=== PATIENT | male | born 1995 | race Caucasian/White ===

== ENCOUNTER 2016-10-30 07:22 | Emergency (ER) | payer MEDICAID, OTHER ==
[~2016-10-30] VITALS: Ht 182.9 cm; Wt 101.2 kg
[~2016-10-30 07:22] MED LIST: ALBUTEROL0.09 MG/A1
[2016-10-30 07:36] VITALS: BP 139/86
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
--- NOTE | 2016-10-30 08:10 | NUR ---
PT TAKEN TO [facility] VIA W/C ACCOMPANIED BY [facility] [facility] [facility].
[2016-10-30] MEDS ORDERED: KETOROLAC 60 MG/2 ML VIAL IM ONE (08:15)
--- NOTE | 2016-10-30 08:24 | NUR ---
PT BACK FROM [facility]
[2016-10-30 09:23] VITALS: BP 127/84
== END 2016-10-30 09:23 | disposition home or self-care (01) ==
LOC: MED 07:22
DX: S20.211A Contusion of right front wall of thorax, initial encounter (principal); J45.909 Unspecified asthma, uncomplicated; W50.1XXA Accidental kick by another person, initial encounter; Y93.89 Activity, other specified; Y92.89 Other specified places as the place of occurrence of the external cause; Y99.8 Other external cause status
CPT/HCPCS: 71100; 81001; 96372; 99285; J1885

== ENCOUNTER 2019-08-06 06:12 | Emergency (ER) | payer MEDICAID ==
[~2019-08-06] VITALS: Ht 175.3 cm; Wt 104.8 kg
[~2019-08-06 06:12] MED LIST changes: +ALBU0.0939; -ALBUTEROL0.09 MG/A1
[2019-08-06 06:21] VITALS: BP 136/70
--- NOTE | 2019-08-06 06:29 | NUR ---
PT AMBULATED TO BED 2. STREP THROAT SWAP COLLECTED.
--- NOTE | 2019-08-06 06:35 | NUR ---
24/M CC SORE THROAT L SIDE SINCE THURSDAY 08/03. STATES DIFFICULTY IN BREATHING UPON AWAKENING. PAIN UNBEARABLE 03/02 UNABLE TO EAT. AOX4 ABLE TO VERBALIZE NEEDS. EVEN UNLABORED BREATHING. AFEBRILE. BED IN LOWEST POSITION. HX ASTHMA. TAKES IBUPROFEN 400MG FOR PAIN. WILL CONTINUE TO MONITOR.
--- NOTE | 2019-08-06 07:00 | NUR ---
ENDORSED CARE TO INCOMING SHIFT RN FERNANDA FOR CONTINUITY OF CARE.
--- NOTE | 2019-08-06 07:01 | NUR ---
RECEIVED REPORT FROM LESLIE BYERS. TRANSFER OF CARE AT THIS TIME
--- NOTE | 2019-08-06 07:06 | NUR ---
STREP SWAB TAKEN TO LAB.
--- NOTE | 2019-08-06 07:10 | NUR ---
DR TURNER AT BEDSIDE EXAMINING PT
[2019-08-06] MEDS ORDERED: PENICILLIN G BENZATHINE C-R 1.2 MU/2 ML SYR IM ONE (07:15)
[2019-08-06 08:42] VITALS: BP 129/71
--- NOTE | 2019-08-06 08:43 | NUR ---
Patient discharged with v/s stable. Written and verbal after care instructions given and explained. Patient alert, oriented and verbalized understanding of instructions. Ambulatory with steady gait. All questions addressed prior to discharge. ID band removed. Patient advised to follow up with PMD. Rx of MOTRIN, LIDOCAINE, AND PENICILLIN given. Patient educated on indication of medication including possible reaction and side effects. Opportunity to ask questions provided and answered.
== END 2019-08-06 08:43 | disposition home or self-care (01) ==
LOC: MED 06:12
DX: J02.0 Streptococcal pharyngitis (principal); J45.909 Unspecified asthma, uncomplicated
CPT/HCPCS: 87081; 96372; 99283; J0558

== ENCOUNTER 2021-02-07 00:19 | Emergency (ER) | payer MEDICAID ==
[~2021-02-07] VITALS: Ht 182.9 cm; Wt 113.4 kg
[2021-02-07 00:20] VITALS: BP 138/59
--- NOTE | 2021-02-07 00:23 | NUR ---
TO LOBBY A/W BED AMBULATORY, BLEEDING CONTROLLED
[2021-02-07] MEDS: LIDOCAINE/EPI 1% 1:100000 20 ML VIAL INJ ONE (05:24)
[2021-02-07 06:37] VITALS: BP 138/59
--- NOTE | 2021-02-07 06:37 | NUR ---
Patient discharged with v/s stable. Written and verbal after care instructions given and explained. Patient verbalized understanding. Ambulatory with steady gait. All questions addressed prior to discharge. Advised to follow up with PMD.
--- NOTE | 2021-02-07 06:37 | NUR ---
PT SEEN AND ASSESSED BY ERMD. NO NURSING INTERVENTIONS NEEDED
== END 2021-02-07 06:37 | disposition home or self-care (01) ==
LOC: MED 00:19
DX: S01.112A Laceration without foreign body of left eyelid and periocular area, initial encounter (principal); J45.909 Unspecified asthma, uncomplicated; R03.0 Elevated blood-pressure reading, without diagnosis of hypertension; Z79.899 Other long term (current) drug therapy; Y04.2XXA Assault by strike against or bumped into by another person, initial encounter; Y93.89 Activity, other specified; Y92.89 Other specified places as the place of occurrence of the external cause; Y99.8 Other external cause status
CPT/HCPCS: 12011; 99282; J2001

== ENCOUNTER 2023-08-23 11:46 | Emergency (ER) | payer MEDICAID ==
[~2023-08-23] VITALS: Ht 182.9 cm; Wt 117.2 kg
[2023-08-23 11:56] VITALS: BP 125/75; PULSE 66; RESP 16; TEMP 97.9; O2SAT 99
[2023-08-23] MEDS ORDERED: CEPH-588 PO (13:50)
[2023-08-23] MEDS ORDERED: IBUP-2213 PO (13:50)
[2023-08-23] MEDS ORDERED: DIPH25TA53 PO (13:50)
[2023-08-23 14:05] VITALS: BP 120/70; PULSE 64; RESP 16; TEMP 97.7; O2SAT 99
== END 2023-08-23 14:05 | disposition home or self-care (01) ==
LOC: MED 11:46
DX: L03.113 Cellulitis of right upper limb (principal); J45.909 Unspecified asthma, uncomplicated; Z79.899 Other long term (current) drug therapy
CPT/HCPCS: 99283

== ENCOUNTER 2024-02-08 17:29 | Emergency (ER) | payer MEDICAID ==
[~2024-02-08] VITALS: Ht 182.9 cm; Wt 113.2 kg
[~2024-02-08 17:29] MED LIST changes: +CEPH-588 PO; +DIPH25TA53 PO; +IBUP-2213 PO
[2024-02-08 17:50] VITALS: BP 115/76; PULSE 78; RESP 18; TEMP 98.3; O2SAT 100
[2024-02-08] MEDS: NACL 0.9% 1,000 ML IV ONE (19:16)
[2024-02-08] MEDS: ONDANSETRON 4 MG/2 ML VIAL IVP ONE (19:16)
[2024-02-08] MEDS: KETOROLAC 30 MG/ML VIAL IVP ONE (19:20)
[2024-02-08 19:24] LABS: BASOPHILS % (AUTO) 0.4 % (0.0-2.0); EOSINOPHILS % (AUTO) 0.1 % (0.0-4.0); HEMATOCRIT 39.2 % (36-52); HEMOGLOBIN 12.5 g/dL (12.0-18.0); LYMPHOCYTES # (AUTO) 1.4 K/uL (2.0-11.5); LYMPHOCYTES % (AUTO) 10.7 % (20.5-51.1); MEAN CORPUSCULAR HEMOGLOBIN 18 pg (27-31); MEAN CORPUSCULAR HGB CONC 32 g/dL (33-37); MEAN CORPUSCULAR VOLUME 55.7 fL (80-94); MONOCYTES # (AUTO) 0.5 K/uL (0.8-1.0); MONOCYTES % (AUTO) 3.6 % (1.7-9.3); NEUTROPHILS # (AUTO) 10.9 K/uL (1.8-7.7); NEUTROPHILS % (AUTO) 85.2 % (42.2-75.2); PLATELET COUNT (AUTO) 366 K/uL (140-450); RED BLOOD CELL COUNT(AUTO) 7.03 MIL/uL (4.20-6.10); RED CELL DISTRIBUTION WIDTH 16.4 % (11.6-13.7); WHITE BLOOD COUNT (AUTO) 12.8 K/uL (4.8-10.8)
[2024-02-08 19:41] LABS: ANION GAP 12.3 (8-16); CALCIUM 8.6 mg/dL (8.5-10.1); CARBON DIOXIDE 28.7 mmol/L (21-32); CREATININE 0.9 mg/dL (0.6-1.3)
[2024-02-08 19:42] LABS: BILIRUBIN,URINE NEGATIVE (NEGATIVE); BLOOD, URINE NEGATIVE (NEGATIVE); COLOR,URINE YELLOW (YELLOW); LEUKOCYTE ESTERASE ,URINE NEGATIVE (NEGATIVE); NITRITE, URINE NEGATIVE (NEGATIVE); PH,URINE 7.5 (5.0-9.0); PROTEIN,URINE TRACE (NEGATIVE); UGLUCOSE NEGATIVE (NEGATIVE); UROBILINOGEN,URINE 0.2 EU/dL (0.2 - 1)
[2024-02-08 19:45] LABS: APPEARANCE,URINE SLIGHTLY HAZY (CLEAR)
[2024-02-08 19:47] LABS: BACTERIA,URINE 1+ /HPF (None Seen); RBC,URINE 0 /HPF (0-5); WBC,URINE 0-5 /HPF (0-5)
[2024-02-08 19:48] LABS: MUCUS,URINE None Seen /LPF (None Seen); SQUAMOUS EPITHELIAL CELL,UR 0-3 (FEW) /LPF (0-3 (FEW))
[2024-02-08 19:54] VITALS: O2SAT 99
[2024-02-08 19:57] VITALS: TEMP 98.3
[2024-02-08] MEDS ORDERED: ALUMINUM HYD/MAG/SIMETHICONE 30 ML UDC ONE (20:31)
[2024-02-08] MEDS ORDERED: DICYCLOMINE HCL LIQUID 10 MG/5 ML UDC ONE (20:32)
[2024-02-08] MEDS: DICYCLOMINE HCL LIQUID 20 MG, ALUMINUM HYD/MAG/SIMETHICONE 30 ML, LIDOCAINE VISCOUS 2% ... PO ONE (20:34)
[2024-02-08] MEDS ORDERED: ONDA-188 SL (20:49)
[2024-02-08] MEDS ORDERED: FAMO-90 PO (20:49)
[2024-02-08] MEDS ORDERED: MAG355OR2 PO (20:49)
[2024-02-08 21:05] VITALS: BP 116/68; PULSE 78; RESP 16; O2SAT 98
== END 2024-02-08 21:05 | disposition home or self-care (01) ==
LOC: MED 17:29
DX: K29.70 Gastritis, unspecified, without bleeding (principal); E86.0 Dehydration; J45.909 Unspecified asthma, uncomplicated; F12.90 Cannabis use, unspecified, uncomplicated; Z79.899 Other long term (current) drug therapy
CPT/HCPCS: 36415; 80048; 81001; 83690; 85025; 87086; 96361; 96374; 96375; 99284; J1885; J2405